=== PATIENT | female | born 1995 | race Caucasian/White ===

== ENCOUNTER 2021-06-06 11:50 | Emergency (ER) | payer OTHER ==
[~2021-06-06 11:50] MED LIST: MACROBID 100 M100 MG PO; PYRIDIUM200 MG PO
[2021-06-06] MEDS ORDERED: INDOCIN 50 MG C50 MG PO (14:52)
== END 2021-06-06 15:05 | disposition home or self-care (01) ==
LOC: ER1 11:50
DX: S96.911A Strain of unspecified muscle and tendon at ankle and foot level, right foot, initial encounter (principal); Z90.49 Acquired absence of other specified parts of digestive tract; Z86.16 Personal history of COVID-19; Z88.0 Allergy status to penicillin; Z88.6 Allergy status to analgesic agent; Z87.891 Personal history of nicotine dependence; W22.8XXA Striking against or struck by other objects, initial encounter
CPT/HCPCS: 73630; 99283